=== PATIENT | female | born 1985 | race Caucasian/White ===

== ENCOUNTER 2017-06-24 10:59 | Outpatient (CLI) | payer OTHER ==
[~2017-06-24 10:59] MED LIST: CYCL-1 PO; CYCL-394 PO; FAMO-128 PO; FLUC150T PO; HYDR-3972 PO; PREN1TAB79 PO; TERB250T85 PO
[2017-06-24 11:18] LABS: RED BLOOD COUNT 4.62 X10'6 (4.20-5.60)
[2017-06-24 11:19] LABS: HEMATOCRIT 42.1 % (35.0-45.0); HEMOGLOBIN 14.5 g/dl (12.0-16.0); MEAN CORPUSCULAR HEMOGLOBIN 31.5 PG (27.0-31.0); MEAN CORPUSCULAR HGB CONC 34.5 % (33.0-36.5); MEAN CORPUSCULAR VOLUME 91.2 FL (78-98); MEAN PLATELET VOLUME 10.3 FL (7.4-10.4); PLATELET COUNT 136 X10'3 (140-440); RED CELL DISTRIBUTION WIDTH 12.9 % (11.5-14.5)
[2017-06-24 11:30] LABS: ALANINE AMINOTRANSFERASE 34 U/L (12-78); ALBUMIN 4.2 G/DL (3.4-5.0); ALBUMIN/GLOBULIN RATIO 1.1 (1.1-1.5); ALKALINE PHOSPHATASE 65 IU/L (46-116); ANION GAP 6 (8-16); ASPARTATE AMINO TRANSFERASE 30 U/L (10-37); BILIRUBIN,TOTAL 0.7 MG/DL (0.1-1.0); BLOOD UREA NITROGEN 13 MG/DL (7-18); CALCIUM 8.9 MG/DL (8.5-10.1); CHLORIDE 106 MMOL/L (99-107); CHOL/HDL RATIO 3.1 (0.00-4.99); CHOLESTEROL 151 MG/DL (0-200); CREATININE 0.81 MG/DL (0.40-0.90); GLUCOSE 81 MG/DL (70-104); HDL CHOLESTEROL 49 MG/DL (35-60); LDL CHOLESTEROL 91 MG/DL (50-100); SODIUM 141 MMOL/L (135-145); TOTAL CARBON DIOXIDE 29.1 MMOL/L (24-32); TOTAL PROTEIN 7.9 G/DL (6.4-8.2); TRIGLYCERIDES 60 MG/DL (20-135); eGFR 83 ML/MIN
== END 2017-06-24 23:59 | disposition home or self-care (01) ==
LOC: LAB 10:59
PROVIDERS: ATTEND Family Medicine
DX: Z00.01 Encounter for general adult medical examination with abnormal findings (principal); R79.89 Other specified abnormal findings of blood chemistry; Z85.820 Personal history of malignant melanoma of skin
CPT/HCPCS: 36415; 80053; 80061; 84443; 85027

== ENCOUNTER 2017-08-24 16:18 | Emergency (ER) | payer OTHER ==
[~2017-08-24] VITALS: Ht 571.8 cm; Wt 53.0 kg
[2017-08-24 16:25] VITALS: BP 130/92
[2017-08-24] MEDS ORDERED: dexamethasone 4mg tablet PO ONE (16:55)
[2017-08-24] MEDS ORDERED: HYDR-3965 PO (16:58)
[2017-08-24] MEDS ORDERED: CYCL-1 PO (16:58)
[2017-08-24] MEDS ORDERED: VAL5T PO (16:58)
== END 2017-08-24 17:37 | disposition home or self-care (01) ==
LOC: ER 16:19
DX: S39.012A Strain of muscle, fascia and tendon of lower back, initial encounter (principal); M54.41 Lumbago with sciatica, right side; G89.29 Other chronic pain; Z88.0 Allergy status to penicillin; Z88.8 Allergy status to other drugs, medicaments and biological substances; Z91.018 Allergy to other foods; X58.XXXA Exposure to other specified factors, initial encounter; Y93.89 Activity, other specified; Y92.89 Other specified places as the place of occurrence of the external cause; Y99.8 Other external cause status
CPT/HCPCS: 99283; A4565; J8540

== ENCOUNTER 2017-10-06 05:38 | Day surgery (SDC) | payer BC, OTHER ==
[2017-10-02 15:52] LABS: BASOPHILS % (AUTO) 0.3 % (0-1); EOSINOPHILS # (AUTO) 0.1 X10'3 (0-0.9); EOSINOPHILS % (AUTO) 2.1 % (0-6); LYMPHOCYTES # (AUTO) 1.4 X10'3 (1.1-4.8); LYMPHOCYTES % (AUTO) 24.2 % (21-51); MEAN CORPUSCULAR HGB CONC 33.8 % (33.0-36.5); MEAN CORPUSCULAR VOLUME 91.7 FL (78-98); MONOCYTES # (AUTO) 0.5 X10'3 (0-0.9); MONOCYTES % (AUTO) 8.1 % (2-12); NEUTROPHILS # (AUTO) 3.6 X10'3 (1.8-7.7); NEUTROPHILS % (AUTO) 65.3 % (42-75); PRE OP HEMATOCRIT 42.9 % (35.0-45.0); PRE OP HEMOGLOBIN 14.5 g/dL (12.0-16.0); PRE OP PLATELET COUNT 166 X10'3 (140-440); RED BLOOD COUNT 4.68 X10'6 (4.20-5.60); RED CELL DISTRIBUTION WIDTH 13.1 % (11.5-14.5)
[2017-10-02 16:00] LABS: HCG SERUM QL NEGATIVE
[2017-10-02 16:09] LABS: ALBUMIN 4.2 G/DL (3.4-5.0); ALBUMIN/GLOBULIN RATIO 1.1 (1.1-1.5); ALKALINE PHOSPHATASE 75 IU/L (46-116); BLOOD UREA NITROGEN 12 MG/DL (7-18); BUN/CREATININE RATIO 16.7 (6.6-38.0); CALCIUM 9.1 MG/DL (8.5-10.1); CHLORIDE 103 MMOL/L (99-107); CREATININE 0.72 MG/DL (0.40-0.90); PRE OP ALT 60 U/L (30-65); PRE OP ANION GAP 10 (8-16); PRE OP AST 27 U/L (10-37); PRE OP BILIRUB, TOTAL 0.6 MG/DL (0.0-1.0); PRE OP GLUCOSE 70 MG/DL (70-104); PRE OP POTASSIUM 3.7 MMOL/L (3.4-5.1); PRE OP SODIUM 141 MMOL/L (135-145); TOTAL CARBON DIOXIDE 28.2 MMOL/L (24-32); TOTAL PROTEIN 7.9 G/DL (6.4-8.2); eGFR > 90 ML/MIN
[2017-10-06] VITALS (10 sets, daily range): BP systolic 102–135; BP diastolic 62–96
[~2017-10-06] VITALS: Ht 165.1 cm; Wt 63.5 kg
[~2017-10-06 05:38] MED LIST changes: -CYCL-1 PO; -CYCL-394 PO; -FAMO-128 PO; -FLUC150T PO; -HYDR-3972 PO; +MAGN250T11 PO; -PREN1TAB79 PO; -TERB250T85 PO; +clindamycin 600mg/D5W 50ml 50 ML IV ONE; +famotidine 20mg tablet PO ONE; +ringers solution, lacted 1,000 ML IV ONE
[2017-10-06] MEDS ORDERED: sevoflurane 250ml liquid IH ONE (07:22)
[2017-10-06] MEDS ORDERED: midazolam 2 mg/2 ml injection ONE (07:24)
[2017-10-06] MEDS ORDERED: fentaNYL/PF 50MCG/1 ML 2ML syringe ONE (07:24)
[2017-10-06] MEDS ORDERED: BUPIVAcaine/PF 7.5mg/ml (0.75%) 10ml vial ONE (07:39)
[2017-10-06] MEDS ORDERED: dexamethasone sod phosphate 4mg/ml inj. ONE (07:44)
[2017-10-06] MEDS ORDERED: propofol inj 20 ML IV ONE ×2 (07:44)
[2017-10-06] MEDS ORDERED: ondansetron/PF 4mg/2ml inj ONE (07:44)
[2017-10-06] MEDS ORDERED: ondansetron/PF 4mg/2ml inj IV PRN (08:20)
[2017-10-06] MEDS ORDERED: proCHLORperazine 10 MG/2 ml inj IV PRN (08:20)
[2017-10-06] MEDS ORDERED: ringers solution, lacted 1,000 ML IV SCH (08:20)
[2017-10-06] MEDS ORDERED: morphine 4 MG/ML inj SYRINge IV PRN ×2 (08:20)
[2017-10-06] MEDS ORDERED: meperidine/PF 25mg/ml syringe IV PRN ×3 (08:20)
== END 2017-10-06 09:04 | disposition home or self-care (01) ==
LOC: PAS 05:38
PROVIDERS: ATTEND Orthopaedic Surgery Hand Surgery
DX: G56.03 Carpal tunnel syndrome, bilateral upper limbs (principal); I10 Essential (primary) hypertension; G43.909 Migraine, unspecified, not intractable, without status migrainosus; M19.90 Unspecified osteoarthritis, unspecified site; F41.8 Other specified anxiety disorders; G89.29 Other chronic pain; Z79.891 Long term (current) use of opiate analgesic; Z88.4 Allergy status to anesthetic agent; Z91.048 Other nonmedicinal substance allergy status; Z88.0 Allergy status to penicillin; Z88.3 Allergy status to other anti-infective agents; Z91.018 Allergy to other foods; Z88.8 Allergy status to other drugs, medicaments and biological substances; Z79.899 Other long term (current) drug therapy; Z98.890 Other specified postprocedural states
CPT/HCPCS: 29848; 36415; 80053; 84703; 85025; A6449; J1100; J2250; J2405; J2704; J3010; J3490; J7120; A7000

== ENCOUNTER 2019-04-16 09:12 | Emergency (ER) | payer OTHER ==
[~2019-04-16] VITALS: Ht 165.1 cm; Wt 64.0 kg
[~2019-04-16 09:12] MED LIST changes: -clindamycin 600mg/D5W 50ml 50 ML IV ONE; -famotidine 20mg tablet PO ONE; -ringers solution, lacted 1,000 ML IV ONE
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
[2019-04-16] MEDS ORDERED: acetaminophen 325mg tablet PO ONE (10:05)
[2019-04-16] MEDS ORDERED: orphenadrine citrate 60mg/2ml inj. IM ONE (10:05)
[2019-04-16] MEDS ORDERED: ketorolac trometh inj. 60 MG/2 ML VIAL IM ONE (10:05)
[2019-04-16] MEDS ORDERED: HYDROcodone/acetaminophen 5mg/325mg tablet PO ONE (10:05)
[2019-04-16] MEDS ORDERED: ondansetron 4mg rapidly disintigrating tab PO ONE (10:05)
--- NOTE | 2019-04-16 10:30 | NUR ---
Pt to MRI
[2019-04-16] MEDS ORDERED: LIDO700A32 TOP (12:09)
[2019-04-16] MEDS ORDERED: HYDR-3965 PO (12:09)
[2019-04-16] MEDS ORDERED: CYCL-1 PO (12:09)
[2019-04-16] MEDS ORDERED: ONDA8TAB6 PO (12:09)
[2019-04-16 12:36] VITALS: BP 116/87
== END 2019-04-16 12:44 | disposition home or self-care (01) ==
LOC: ER 09:12
DX: M47.816 Spondylosis without myelopathy or radiculopathy, lumbar region (principal); R20.2 Paresthesia of skin; G89.29 Other chronic pain; Z91.018 Allergy to other foods; Z88.0 Allergy status to penicillin; Z79.899 Other long term (current) drug therapy; V49.88XA Car occupant (driver) (passenger) injured in other specified transport accidents, initial encounter; Y93.89 Activity, other specified; Y92.413 State road as the place of occurrence of the external cause; Y99.9 Unspecified external cause status
CPT/HCPCS: 72148; 96372; 99284; J1885; J2360

== ENCOUNTER 2019-04-18 09:25 | Emergency (ER) | payer OTHER ==
[~2019-04-18] VITALS: Ht 165.1 cm; Wt 64.5 kg
[~2019-04-18 09:25] MED LIST changes: +CYCL-1 PO; +HYDR-3965 PO; +LIDO700A32 TOP; +ONDA8TAB6 PO
[2019-04-18 09:27] VITALS: BP 119/83
--- NOTE | 2019-04-18 10:24 | NUR ---
Patient ambulated to restroom with steady gait.
[2019-04-18] MEDS ORDERED: ketorolac trometh. 30mg/ml inj. IM ONE (10:55)
== END 2019-04-18 12:06 | disposition home or self-care (01) ==
LOC: ER 09:25
DX: S16.1XXA Strain of muscle, fascia and tendon at neck level, initial encounter (principal); S39.012A Strain of muscle, fascia and tendon of lower back, initial encounter; S80.01XA Contusion of right knee, initial encounter; G89.29 Other chronic pain; M25.512 Pain in left shoulder; Z91.018 Allergy to other foods; Z88.0 Allergy status to penicillin; Z88.4 Allergy status to anesthetic agent; Z79.899 Other long term (current) drug therapy; V89.2XXA Person injured in unspecified motor-vehicle accident, traffic, initial encounter; Y93.89 Activity, other specified; Y92.89 Other specified places as the place of occurrence of the external cause; Y99.0 Civilian activity done for income or pay
CPT/HCPCS: 72040; 96372; 99283; J1885

== ENCOUNTER 2019-04-23 09:36 | Outpatient (CLI) | payer OTHER | END 2019-04-23 23:59 | disposition home or self-care (01) | LOC: RAD 09:36 | PROVIDERS: ATTEND Family Medicine | DX: M76.891 Other specified enthesopathies of right lower limb, excluding foot (principal) | CPT/HCPCS: 73564 ==

== ENCOUNTER 2019-05-22 08:32 | Outpatient (CLI) | payer OTHER ==
[~2019-05-22 08:32] MED LIST changes: -HYDR-3965 PO
== END 2019-05-22 23:59 | disposition home or self-care (01) ==
LOC: RAD 08:32
PROVIDERS: ATTEND Family Medicine
DX: M25.561 Pain in right knee (principal)
CPT/HCPCS: 73721

== ENCOUNTER 2019-11-03 08:33 | Emergency (ER) | payer BC, OTHER ==
[~2019-11-03] VITALS: Ht 165.1 cm; Wt 63.6 kg
[2019-11-03 08:55] VITALS: BP 148/90
== END 2019-11-03 09:40 | disposition home or self-care (01) ==
LOC: EEVIPCON 08:33 → ER 08:33
DX: B34.9 Viral infection, unspecified (principal); R19.7 Diarrhea, unspecified; R11.0 Nausea; R05 Cough; Z20.828 Contact with and (suspected) exposure to other viral communicable diseases; G89.29 Other chronic pain; Z91.018 Allergy to other foods; Z88.4 Allergy status to anesthetic agent; Z91.048 Other nonmedicinal substance allergy status; Z79.899 Other long term (current) drug therapy
CPT/HCPCS: 87635; 99283; C9803